=== PATIENT | female | born 1995 | race Two or more races ===

== ENCOUNTER 2019-11-16 19:15 | Emergency (ER) | payer MEDICAID ==
[~2019-11-16] VITALS: Ht 182.9 cm; Wt 98.0 kg
[2019-11-16 19:20] VITALS: BP 129/73
[2019-11-16] MEDS ORDERED: ONDANSETRON ODT 4 MG ONE (19:34)
[2019-11-16] MEDS ORDERED: LIDOCAINE-MPF 1%, 5ML ONE (19:34)
[2019-11-16] MEDS ORDERED: PLEASE ENTER ALLERGIES MC SCH (20:00)
[2019-11-16] MEDS ORDERED: LIDOCAINE 2%, 20ML SQ ONE (20:00)
[2019-11-16] MEDS ORDERED: ONDANSETRON ODT 4 MG PO ONE (20:00)
--- NOTE | 2019-11-16 20:50 | NUR ---
XRAY LOOKING INTO GETTING XRAY READ.
== END 2019-11-16 22:15 | disposition home or self-care (01) ==
LOC: ED 22:09
DX: S06.0X0A Concussion without loss of consciousness, initial encounter (principal); S01.81XA Laceration without foreign body of other part of head, initial encounter; S60.811A Abrasion of right wrist, initial encounter; W01.0XXA Fall on same level from slipping, tripping and stumbling without subsequent striking against object, initial encounter; Y93.89 Activity, other specified; Y92.009 Unspecified place in unspecified non-institutional (private) residence as the place of occurrence of the external cause; Y99.8 Other external cause status
CPT/HCPCS: 12052; 70450; 73110; 99284; Q0162